=== PATIENT | female | born 1990 | race Caucasian/White ===

== ENCOUNTER 2017-06-24 05:33 | Day surgery (SDC) | payer OTHER ==
[~2017-06-24] VITALS: Ht 165.1 cm; Wt 59.9 kg
[2017-06-24] MEDS ORDERED: LACTATED RINGERS 1,000 ML IV SCH (06:12)
[2017-06-24] MEDS ORDERED: LEVO75TA PO (06:13)
[2017-06-24 06:39] VITALS: BP 103/67
[2017-06-24] MEDS ORDERED: MISOPROSTOL 200 MCG TABLET ONE (06:52)
[2017-06-24] MEDS ORDERED: OXYTOCIN 10 UNITS/ML, 1ML ONE (06:52)
[2017-06-24] MEDS ORDERED: SILVER NITRATE STICK TP ONE (06:53)
[2017-06-24] MEDS ORDERED: METHYLERGONOVINE 0.2 MG/ML IM ONE (06:53)
[2017-06-24] MEDS ORDERED: MIDAZOLAM 1 MG/ML, 2ML ONE (07:14)
[2017-06-24] MEDS ORDERED: FENTANYL PF 100 MCG/2ML ONE (07:14)
[2017-06-24] MEDS ORDERED: ONDANSETRON 2MG/ML, 2ML ONE (07:16)
[2017-06-24] MEDS ORDERED: PROPOFOL 10 MG/ML, 20ML ONE (07:16)
[2017-06-24] MEDS ORDERED: CEFAZOLIN 1,000 MG ONE (07:16)
[2017-06-24] MEDS ORDERED: DEXAMETHASONE 4 MG/ML, 1ML ONE (07:16)
[2017-06-24] MEDS ORDERED: LIDOCAINE-MPF 2% ,5ML ONE (07:16)
[2017-06-24] MEDS ORDERED: METOCLOPRAMIDE 5 MG/ML, 2ML ONE (07:17)
[2017-06-24] MEDS ORDERED: KETOROLAC 30 MG/1 ML ONE (07:46)
[2017-06-24] MEDS ORDERED: hydrALAzine 20 MG/ML, 1ML IV PRN (08:00)
[2017-06-24] MEDS ORDERED: LABETALOL 5MG/ML, 20ML IV PRN (08:00)
[2017-06-24] MEDS ORDERED: DIAZEPAM 5 MG/ML, 2ML IVPush PRN (08:00)
[2017-06-24] MEDS ORDERED: MEPERIDINE/PF 25MG/0.5ML IVPush PRN (08:00)
[2017-06-24] MEDS ORDERED: LORazepam 2 MG/ML, 1ML IVPush PRN (08:00)
[2017-06-24] MEDS ORDERED: MIDAZOLAM 1 MG/ML, 2ML IV PRN (08:00)
[2017-06-24] MEDS ORDERED: PROMETHAZINE 25 MG/ML, 1ML IV PRN (08:00)
[2017-06-24] MEDS ORDERED: ONDANSETRON 2MG/ML, 2ML IVPush PRN (08:00)
[2017-06-24] MEDS ORDERED: HYDROmorphone 1 MG/ML, 1ML IV PRN (08:00)
[2017-06-24] MEDS ORDERED: OXYcodone 5 MG/5 ML ORAL.SOL UDC PO PRN (08:00)
[2017-06-24] MEDS ORDERED: FENTANYL PF 100 MCG/2ML IV PRN (08:00)
[2017-06-24] MEDS ORDERED: ALBUTEROL/IPRATROPIUM 2.5MG/0.5MG, 3 ML NPPB PRN (08:00)
[2017-06-24] MEDS ORDERED: ACETAMINOPHEN 325 MG TABLET PO PRN (08:00)
[2017-06-24] MEDS ORDERED: MEPERIDINE/PF 25MG/0.5ML ONE (08:33)
[2017-06-24] MEDS ORDERED: OXYcodone 5 MG/5 ML ORAL.SOL UDC ONE (08:33)
[2017-06-24] MEDS ORDERED: ACETAMINOPHEN 650 MG/20.3 ML UDC ONE (08:33)
== END 2017-06-24 10:37 ==
LOC: OUT 05:33
PROVIDERS: ATTEND Obstetrics & Gynecology
DX: O02.1 Missed abortion (principal); Z3A.13 13 weeks gestation of pregnancy; E03.9 Hypothyroidism, unspecified; N85.6 Intrauterine synechiae
CPT/HCPCS: 59820; 76998; 88305; J1100; J1885; J2175; J2250; J2405; J2590; J2704; J2765; J3010; J3490; J7120; J0690; J2210